=== PATIENT | female | born 1985 | race Caucasian/White ===

== ENCOUNTER 2020-12-25 17:07 | Emergency (ER) | payer OTHER ==
[~2020-12-25] VITALS: Ht 162.6 cm; Wt 88.5 kg
[2020-12-25 17:20] VITALS: BP 107/66
[2020-12-25 17:42] LABS: BASOPHILS % (AUTO) 0.6 % (0.0-2.0); EOSINOPHILS # (AUTO) 0.2 K/uL (0-0.4); EOSINOPHILS % (AUTO) 2.6 % (0.0-4.0); HEMATOCRIT 39.7 % (36-48); HEMOGLOBIN 13.5 g/dL (12.0-16.0); LYMPHOCYTES # (AUTO) 2.7 K/uL (2.5-16.5); MEAN CORPUSCULAR HEMOGLOBIN 30 pg (27-31); MEAN CORPUSCULAR HGB CONC 34 g/dL (33-37); MEAN CORPUSCULAR VOLUME 88.3 fL (80-94); MONOCYTES # (AUTO) 0.6 K/uL (0.8-1.0); MONOCYTES % (AUTO) 7.4 % (1.7-9.3); NEUTROPHILS % (AUTO) 53.4 % (42.2-75.2); PLATELET COUNT (AUTO) 309 K/uL (140-450); RED BLOOD CELL COUNT(AUTO) 4.49 MIL/uL (4.20-5.40); RED CELL DISTRIBUTION WIDTH 12.9 % (11.6-13.7); WHITE BLOOD COUNT (AUTO) 7.5 K/uL (4.8-10.8)
--- NOTE | 2020-12-25 17:43 | NUR ---
35 YEAR OLD FEMALE COMPLAINS OF VAGINAL BLEEDING AND CRAMPING X TODAY. PT DENIES NAUSEA, VOMITTING, DIARRHEA. PT AOX4, BREATHING EVEN AND UNLABORED, SKIN WARM AND DRY. BED IN LOWEST POSITION, LOCKED, BED RAIL UPX1. PMH - C SECTION ALLERGIES - NKA
[2020-12-25] MEDS: ACETAMINOPHEN EXTRA STRENGTH 500 MG TAB PO ONE (17:48)
[2020-12-25 18:11] LABS: APPEARANCE,URINE HAZY (CLEAR); BILIRUBIN,URINE NEGATIVE (NEGATIVE); BLOOD, URINE 3+ (NEGATIVE); COLOR,URINE YELLOW (YELLOW); LEUKOCYTE ESTERASE ,URINE NEGATIVE (NEGATIVE); NITRITE, URINE NEGATIVE (NEGATIVE); PH,URINE 6.5 (5.0-9.0); UGLUCOSE NEGATIVE (NEGATIVE)
[2020-12-25 18:24] LABS: RBC,URINE 50-80 /HPF (0-5); WBC,URINE 0-5 /HPF (0-5)
--- NOTE | 2020-12-25 19:02 | NUR ---
RHOGAM ADMINISTERED IM INTO LEFT GLUTEUS TOR SITE.
[2020-12-25 19:05] VITALS: BP 106/70
--- NOTE | 2020-12-25 19:05 | NUR ---
Patient discharged with v/s stable. Written and verbal after care instructions about miscarriage given and explained. Patient verbalized understanding. Ambulatory with steady gait. All questions addressed prior to discharge. Advised to follow up with PMD.
== END 2020-12-25 19:05 | disposition home or self-care (01) ==
LOC: MED 17:07
DX: N93.9 Abnormal uterine and vaginal bleeding, unspecified (principal); R10.2 Pelvic and perineal pain
CPT/HCPCS: 36415; 76830; 81001; 81025; 84702; 85025; 86886; 86900; 86901; 99284; J2790

== ENCOUNTER 2021-06-05 21:34 | Emergency (ER) | payer OTHER ==
[~2021-06-05] VITALS: Ht 162.6 cm; Wt 91.6 kg
[2021-06-05 21:43] VITALS: BP 115/70
--- NOTE | 2021-06-05 21:55 | NUR ---
PT TAKEN TO BED 9
[2021-06-05 22:36] LABS: APPEARANCE,URINE CLEAR (CLEAR); BILIRUBIN,URINE NEGATIVE (NEGATIVE); BLOOD, URINE NEGATIVE (NEGATIVE); COLOR,URINE YELLOW (YELLOW); LEUKOCYTE ESTERASE ,URINE NEGATIVE (NEGATIVE); NITRITE, URINE NEGATIVE (NEGATIVE); PH,URINE 7.5 (5.0-9.0); UGLUCOSE NEGATIVE (NEGATIVE)
--- NOTE | 2021-06-05 22:51 | NUR ---
Dr. Krishnan examining patient.
[2021-06-05 23:29] VITALS: BP 115/70
--- NOTE | 2021-06-05 23:29 | NUR ---
Patient discharged with v/s stable. Written and verbal after care instructions given and explained. Patient verbalized understanding. Ambulatory with steady gait. ID band removed. All questions addressed prior to discharge. Advised to follow up with PMD.
== END 2021-06-05 23:29 | disposition home or self-care (01) ==
LOC: MED 21:34
DX: O26.891 Other specified pregnancy related conditions, first trimester (principal); M54.50 Low back pain, unspecified; Z3A.01 Less than 8 weeks gestation of pregnancy; Z88.8 Allergy status to other drugs, medicaments and biological substances; Z98.890 Other specified postprocedural states
CPT/HCPCS: 81003; 81025; 99283

== ENCOUNTER 2021-07-21 07:10 | Emergency (ER) | payer OTHER ==
[~2021-07-21] VITALS: Ht 162.6 cm; Wt 91.6 kg
[2021-07-21 07:16] VITALS: BP 98/62
--- NOTE | 2021-07-21 07:44 | NUR ---
36/F BIB SELF WITH C/O LOWER BACK PAIN AND VAGINAL BLEEDING SINCE THIS MORNING. PATIENT REPORTS SHE IS APPROXIMATELY 11 WEEKS AND WOKE UP WITH "BRIGHT RED BLOOD" WHEN USING THE RESTROOM THIS MORNING. STATES SHE BEGAN HAVING 4/10 SHARP LOWER BACK PAIN THAT IS UNPROVOKED AND NONRADIATING. PATIENT DENIES CP, SOB, FEVER, CHILLS, N/V/D. PATIENT IS A2.
--- NOTE | 2021-07-21 07:46 | NUR ---
ULTRASOUND AT BEDSIDE.
[2021-07-21 08:45] LABS: BASOPHILS % (AUTO) 0.3 % (0.0-2.0); EOSINOPHILS # (AUTO) 0.2 K/uL (0-0.4); EOSINOPHILS % (AUTO) 2.8 % (0.0-4.0); HEMATOCRIT 37.4 % (36-48); HEMOGLOBIN 12.9 g/dL (12.0-16.0); LYMPHOCYTES # (AUTO) 1.7 K/uL (2.5-16.5); LYMPHOCYTES % (AUTO) 20.7 % (20.5-51.1); MEAN CORPUSCULAR HEMOGLOBIN 30 pg (27-31); MEAN CORPUSCULAR HGB CONC 34 g/dL (33-37); MEAN CORPUSCULAR VOLUME 86.8 fL (80-94); MONOCYTES # (AUTO) 0.4 K/uL (0.8-1.0); MONOCYTES % (AUTO) 5.2 % (1.7-9.3); NEUTROPHILS # (AUTO) 5.7 K/uL (1.8-7.7); PLATELET COUNT (AUTO) 252 K/uL (140-450); RED BLOOD CELL COUNT(AUTO) 4.31 MIL/uL (4.20-5.40); RED CELL DISTRIBUTION WIDTH 13.5 % (11.6-13.7); WHITE BLOOD COUNT (AUTO) 8.1 K/uL (4.8-10.8)
[2021-07-21 09:11] LABS: APPEARANCE,URINE CLEAR (CLEAR); BILIRUBIN,URINE 1+ (NEGATIVE); BLOOD, URINE 3+ (NEGATIVE); COLOR,URINE YELLOW (YELLOW); LEUKOCYTE ESTERASE ,URINE NEGATIVE (NEGATIVE); NITRITE, URINE NEGATIVE (NEGATIVE); UGLUCOSE NEGATIVE (NEGATIVE)
--- NOTE | 2021-07-21 09:30 | NUR ---
PATIENT LAYING BED, AWAITING RESULTS. WILL CONTINUE TO MONITOR.
[2021-07-21 09:43] LABS: WBC,URINE 0-5 /HPF (0-5)
[2021-07-21 09:48] LABS: OTHER CASTS, URINE RARE SPERMATOZOA /LPF (None Seen)
--- NOTE | 2021-07-21 12:00 | NUR ---
ORDERED BY DR. VALLES, RHOGAM GIVEN IM. VERIFIED BY TWO RNS PRIOR TO ADMINISTRATION. CONSENT OBTAINED AND IN PATIENT CHART.
[2021-07-21 12:45] VITALS: BP 123/65
--- NOTE | 2021-07-21 12:47 | NUR ---
Patient discharged with v/s stable. Written and verbal after care instructions given and explained. Patient verbalized understanding. Ambulatory with steady gait. All questions addressed prior to discharge. Advised to follow up with PMD.
== END 2021-07-21 12:45 | disposition home or self-care (01) ==
LOC: MED 07:10
DX: O03.9 Complete or unspecified spontaneous abortion without complication (principal); Z98.890 Other specified postprocedural states; Z88.6 Allergy status to analgesic agent; Z3A.11 11 weeks gestation of pregnancy
CPT/HCPCS: 36415; 76817; 81001; 81025; 84702; 85025; 86850; 86886; 86900; 86901; 99284; J2790; Q0092

== ENCOUNTER 2021-08-05 09:55 | Observation (INO) | payer OTHER, SELFPAY ==
[~2021-08-05] VITALS: Ht 162.6 cm; Wt 91.6 kg
--- NOTE | 2021-08-05 10:00 | NUR ---
36 Y/O FEMALE BIBA C/O VAGINAL BLEEDING THIS AM. PER EMS PT ABOUT 1 CUP OF VAGINAL BLEEDING TODAY. ALSO HAD RECENT DEMISE 1 MONTH AGO. PT DENIES ANY PAIN. ABD SOFT NON TENDER. ACTIVE VAGINAL BLEEDING NOTED. ERMD MADE AWARE OF PT STATUS MEDHX: DENIES ALLERGIES: NAPROXEN
[2021-08-05 10:05] VITALS: BP 118/79
--- NOTE | 2021-08-05 10:09 | NUR ---
DR CANO AT BEDSIDE EXAMINING PT
--- NOTE | 2021-08-05 10:11 | NUR ---
DR CANO AT BEDSIDE PERFORMING ULTRASOUND
--- NOTE | 2021-08-05 10:23 | NUR ---
LAB AT BEDSIDE
[2021-08-05 10:37] LABS: BASOPHILS % (AUTO) 0.4 % (0.0-2.0); EOSINOPHILS # (AUTO) 0.2 K/uL (0-0.4); HEMATOCRIT 30.4 % (36-48); HEMOGLOBIN 10.5 g/dL (12.0-16.0); LYMPHOCYTES # (AUTO) 1.7 K/uL (2.5-16.5); LYMPHOCYTES % (AUTO) 25.6 % (20.5-51.1); MEAN CORPUSCULAR HEMOGLOBIN 30 pg (27-31); MEAN CORPUSCULAR HGB CONC 35 g/dL (33-37); MEAN CORPUSCULAR VOLUME 86.9 fL (80-94); MONOCYTES # (AUTO) 0.3 K/uL (0.8-1.0); MONOCYTES % (AUTO) 4.7 % (1.7-9.3); NEUTROPHILS # (AUTO) 4.4 K/uL (1.8-7.7); NEUTROPHILS % (AUTO) 66.3 % (42.2-75.2); PLATELET COUNT (AUTO) 288 K/uL (140-450); RED CELL DISTRIBUTION WIDTH 13.2 % (11.6-13.7); WHITE BLOOD COUNT (AUTO) 6.6 K/uL (4.8-10.8)
--- NOTE | 2021-08-05 10:43 | NUR ---
ULTRASOUND AT BEDSIDE
--- NOTE | 2021-08-05 11:54 | NUR ---
PT'S AT BEDSIDE
--- NOTE | 2021-08-05 12:18 | NUR ---
RHOGHAM GIVEN, IM SHOT TO GLUTEUS TOR. VERIFIED PT, LOT # AND EXP DATE WITH ELMA BRYAN BEDSIDE. MAREKR
--- NOTE | 2021-08-05 13:39 | NUR ---
Pelvic exam performed by DR CANO with TESHA BRYAN at bedside for entire examination. Patient tolerated procedure WELL. Patient assisted to position of comfort after examination.
[2021-08-05] MEDS ORDERED: MAGNESIUM OXIDE 400 MG TAB PO PRN (15:15)
[2021-08-05] MEDS ORDERED: ACETAMINOPHEN 325 MG TAB PO PRN (15:15)
[2021-08-05] MEDS ORDERED: POTASSIUM CHLORIDE 10 MEQ TABER PO PRN (15:15)
[2021-08-05] MEDS ORDERED: MAG SULF 2000 MG/WATER PREMIX 50 ML IV PRN (15:15)
[2021-08-05] MEDS ORDERED: ONDANSETRON 4 MG/2 ML VIAL IVP PRN (15:15)
[2021-08-05] MEDS ORDERED: MORPHINE SULFATE 2 MG/ML SYR IVP PRN (15:15)
[2021-08-05] MEDS ORDERED: KCL 20 MEQ/WATER INJ PREMIX 200 ML IV PRN (15:15)
[2021-08-05] MEDS ORDERED: IBUPROFEN 400 MG TAB PO PRN (15:15)
[2021-08-05 15:21] LABS: BILIRUBIN,URINE 1+ (NEGATIVE); BLOOD, URINE 3+ (NEGATIVE); COLOR,URINE RED (YELLOW); LEUKOCYTE ESTERASE ,URINE TRACE (NEGATIVE); NITRITE, URINE POSITIVE (NEGATIVE); PH,URINE 6.5 (5.0-9.0); UGLUCOSE NEGATIVE (NEGATIVE)
[2021-08-05 15:45] LABS: RBC,URINE TOO NUMEROUS TO COUN /HPF (0-5); WBC,URINE NONE SEEN /HPF (0-5)
[2021-08-05] MEDS: NACL 0.9% 1,000 ML IV SCH (16:10)
--- NOTE | 2021-08-05 17:04 | NUR ---
DR BARRON AT BEDSIDE EXAMINING PT
--- NOTE | 2021-08-05 17:32 | NUR ---
PT AMBULATED TO RESTROOM, STEADY GAIT
--- NOTE | 2021-08-05 17:51 | NUR ---
PT STATES LAST TIME SHE ATE WAS LAST NIGHT 08/04 AT 8PM.
--- NOTE | 2021-08-05 19:22 | NUR ---
Pt report given to FLORI BRYAN. Transfer of care at this time.
--- NOTE | 2021-08-05 19:22 | NUR ---
REPORT RECEIVED FROM RANDI PARKINSON FOR CONTINUITY OF PT CARE AT THIS TIME.
--- NOTE | 2021-08-05 20:34 | NUR ---
PT SITTING IN BED LOCKED IN LOWEST POSITION W HOB ELEVATED. PT DENIES ANY PAIN, DIZZINESS, NAUSEA, OR OTHER SYMPTOMS. PT DOES NOT NEED ANYTHING AT THIS TIME. ALL NEEDS MET. VSS. BREATHING EVEN AND UNLABORED. NAD NOTED, WILL CONTINUE TO MONITOR.
--- NOTE | 2021-08-05 21:55 | NUR ---
CALLED RANDI PAINTER TO GIVE REPORT, PER ELIO, BETTING CLERK NOT READY TO TAKE REPORT WILL CALL BACK.
--- NOTE | 2021-08-05 22:18 | NUR ---
PT APPEARS TO BE RESTING W EYES CLOSED IN L LATERAL POSITION, HOB ELEVATED, X1 SIDERAIL UP. BREATHING EVEN AND UNLABORED. NAD NOTED, WILL CONTINUE TO MONITOR.
--- NOTE | 2021-08-05 23:56 | NUR ---
CALLED MADINA BRYAN, X2 TO GIVE REPORT. NO ANSWER AT THIS TIME.
--- NOTE | 2021-08-06 00:12 | NUR ---
Pt report given to PAPO BALLARD. Transfer of care at this time.
--- NOTE | 2021-08-06 00:29 | NUR ---
Patient will be admitted to care of DR. BARRON. Admited to MED/SURG. Will go to room 128B. Belongings list completed. Report to PAPO BALLARD.
--- NOTE | 2021-08-06 01:30 | NUR ---
ADMITTED PATIENT FROM ER DEPARTMENT VIA WHEELCHAIR WITH 1 STAFF WITH CHIEF COMPLAINT OF VAGINAL BLEEDING. PATIENT IS 36 Y/O FEMALE AND COOPERATIVE. PATIENT IS AWAKE, ALERT, ORIENTED AND VERBALLY RESPONSIVE. ABLE TO MAKE NEEDS KNOWN. A/OX4. HEAD TO TOE ASSESSMENT BY RN DARON COMPLETED. BREATHING EVEN AND UNLABORED WITH NO SOB NOTED. INITIAL V/S TAKEN AND WNL. PATIENT IS NPO EXCEPT FOR MEDICATIONS. IV SITE ON LEFT A/C 20G WITH NS @ 100ML/HR. SKIN IS INTACT. ORIENTED TO CALL LIGHT, BED, PHONE, TELEVISION, BATHROOM, VISITING HOURS, PROCEDURES, ID BRACELET ON, BELONGINGS LIST CHECKED. ALL SAFETY MEASURES IN PLACE. CALL LIGHT WITHIN REACH. WILL CONTINUE WITH THE CURRENT PLAN OF CARE.
[2021-08-06] MEDS: NACL 0.9% 1,000 ML IV SCH ×3 (02:08→21:15)
--- NOTE | 2021-08-06 03:24 | NUR ---
CHECKED ON PATIENT. PATIENT ASLEEP WITH VISIBLE CHEST RISING AND FALLING. BREATHING EVEN AND UNLABORED WITH NO SOB NOTED. NOT IN DISTRESS. ALL SAFETY MEASURES IN PLACE. CALL LIGHT WITHIN REACH. WILL CONTINUE TO MONITOR.
[2021-08-06 04:00] VITALS: BP 101/59
--- NOTE | 2021-08-06 05:25 | NUR ---
ROUNDED ON PATIENT. SLEEPING WELL. VISIBLE CHEST RISING AND FALLING. ALL SAFETY MEASURES IN PLACE. CALL LIGHT WITHIN REACH. WILL CONTINUE TO MONITOR.
[2021-08-06 05:44] LABS: BASOPHILS % (AUTO) 0.4 % (0.0-2.0); EOSINOPHILS # (AUTO) 0.2 K/uL (0-0.4); EOSINOPHILS % (AUTO) 3.2 % (0.0-4.0); HEMATOCRIT 27.6 % (36-48); HEMOGLOBIN 9.5 g/dL (12.0-16.0); LYMPHOCYTES # (AUTO) 2.1 K/uL (2.5-16.5); MEAN CORPUSCULAR HEMOGLOBIN 30 pg (27-31); MEAN CORPUSCULAR HGB CONC 35 g/dL (33-37); MEAN CORPUSCULAR VOLUME 86.8 fL (80-94); MONOCYTES # (AUTO) 0.6 K/uL (0.8-1.0); MONOCYTES % (AUTO) 8.4 % (1.7-9.3); NEUTROPHILS # (AUTO) 3.7 K/uL (1.8-7.7); PLATELET COUNT (AUTO) 237 K/uL (140-450); RED BLOOD CELL COUNT(AUTO) 3.18 MIL/uL (4.20-5.40); RED CELL DISTRIBUTION WIDTH 13.1 % (11.6-13.7); WHITE BLOOD COUNT (AUTO) 6.6 K/uL (4.8-10.8)
--- NOTE | 2021-08-06 07:05 | NUR ---
RECEIVED ENDORSEMENT FROM CIGAR PACKER AND GRADER FOR CONTINUITY OF CARE. PT NPO POST MID NIGHT.
--- NOTE | 2021-08-06 07:10 | NUR ---
ENDORSED PATIENT REPORT TO AM SHIFT NURSE FOR CONTINUITY OF CARE. PATIENT IS STABLE.
--- NOTE | 2021-08-06 07:24 | NUR ---
PT TRANSFER TO OR COMPRESSOR REPAIRER BY 2 OR STAFF VIA [facility].
[2021-08-06 07:41] LABS: ANION GAP 12.1 (8-16); CARBON DIOXIDE 24.5 mmol/L (21-32); CREATININE 0.7 mg/dL (0.6-1.3); POTASSIUM 3.6 mmol/L (3.5-5.1)
[2021-08-06] MEDS ORDERED: fentaNYL citrate 0.05 MG/ML VIAL ONE (07:42)
[2021-08-06] MEDS ORDERED: MIDAZOLAM 2 MG/2 ML VIAL ONE (07:43)
[2021-08-06] MEDS ORDERED: PROPOFOL 200 MG/20 ML VIAL IV ONE (07:43)
[2021-08-06] MEDS ORDERED: ONDANSETRON 4 MG/2 ML VIAL ONE (08:08)
[2021-08-06] MEDS ORDERED: MEPERIDINE 25 MG/ML SYR IVP PRN (08:15)
[2021-08-06] MEDS ORDERED: HYDROmorphone 1 MG/ML AMP IVP PRN (08:15)
[2021-08-06] MEDS ORDERED: ONDANSETRON 4 MG/2 ML VIAL IVP PRN (08:15)
[2021-08-06] MEDS: LACTATED RINGERS 1,000 ML IV SCH ×2 (08:15→16:09)
[2021-08-06] MEDS ORDERED: diphenhydrAMINE 50 MG/ML VIAL IVP PRN (08:15)
--- NOTE | 2021-08-06 08:25 | NUR ---
PATIENT HAS BEEN SCREENED AND CATEGORIZED LOW NUTRITION RISK. PATIENT WILL BE SEEN WITHIN 7 DAYS OF ADMISSION. 08/12/[address]
[2021-08-06] MEDS: metroNIDAZOLE 500 MG/NS PREMIX 100 ML IV SCH ×2 (09:00→21:13)
--- NOTE | 2021-08-06 09:18 | NUR ---
PT SLEEPING BACK FROM OR ON STABLE CONDITION.
[2021-08-06] MEDS: DOXYCYCLINE 100 MG in DEXTROSE 5% 100 ML IV SCH (10:30)
--- NOTE | 2021-08-06 10:30 | NUR ---
RN GIVEN IV ATB TOLERATED WELL NO ADVERSE REACTION NOTED. ALL SAFETY PRECAUTION IN PLACE. CALL LIGHT WITH IN EASY REACH.
[2021-08-06 12:00] VITALS: BP 96/56
--- NOTE | 2021-08-06 12:30 | NUR ---
PT GOES TO TOILET AND CHANGE HER SANITARY PADS NOTED WITH SMALL AMOUNT OF BRIGHT BLOOD STAIN. ALL SAFETY PRECAUTION IN PLACE. DENIES PAIN.
--- NOTE | 2021-08-06 16:00 | NUR ---
PT ON STABLE CONDITION AT BED SIDE.
--- NOTE | 2021-08-06 18:00 | NUR ---
AT BED SIDE. PT ON STABLE CONDITION. NO S/S OF BLEEDING NO DIZZINESS, LIGHT HEADED. NO ADVERSE REACTION ON IV ATB. CALL LIGHT WITH IN EASY REACH.
--- NOTE | 2021-08-06 19:10 | NUR ---
PT ON STABLE CONDITION ENDORSE TO RESIDENTIAL LIVING ASSISTANT NURSE FOR CONTINUITY OF CARE.
--- NOTE | 2021-08-06 19:25 | NUR ---
RECEIVED PATIENT REPORT FROM AM SHIFT NURSE FOR CONTINUITY OF CARE. PATIENT IN BED, AWAKE, ALERT AND VERBALLY RESPONSIVE. PATIENT AT BEDSIDE. PATIENT ABLE TO MAKE NEEDS KNOWN. NOT IN DISTRESS. DENIES ANY PAIN OR DISCOMFORT AT THIS TIME. BREATHING EVEN AND UNLABORED WITH NO SOB NOTED. ALL SAFETY MEASURES IN PLACE. CALL LIGHT WITHIN REACH. WILL CONTINUE WITH THE CURRENT PLAN OF CARE.
[2021-08-06 20:00] VITALS: BP 98/63
--- NOTE | 2021-08-06 21:05 | NUR ---
PATIENT COMPLAINT OF HEADACHE 11/23. ADMINISTERED PAIN MEDICATION PER MD ORDER. TOLERATED WELL. NO ASE NOTED. ALL SAFETY MEASURES IN PLACE. CALL LIGHT WITHIN REACH. WILL CONTINUE TO MONITOR.
--- NOTE | 2021-08-06 21:15 | NUR ---
ALL IV MEDICATIONS ADMINISTERED BY RANDI GOLDEN PER MD ORDER.
--- NOTE | 2021-08-06 23:04 | NUR ---
Patient's Plan of Care was discussed and reviewed with PAPO: VICK
--- NOTE | 2021-08-07 01:06 | NUR ---
ROUNDED ON PATIENT. PATIENT SLEEPING WELL WITH HOB IN SEMI-FOWLERS. BREATHING EVEN AND UNLABORED WITH NO SOB NOTED. ALL SAFETY MEASURES IN PLACE. CALL LIGHT WITHIN REACH. WILL CONTINUE TO MONITOR.
--- NOTE | 2021-08-07 03:40 | NUR ---
CHECKED ON PATIENT. PATIENT RESTING IN BED COMFORTABLY WITH HOB ELEVATED. BREATHING EVEN AND UNLABORED. NO SOB NOTED. NOT IN DISTRESS. ALL SAFETY MEASURES IN PLACE. CALL LIGHT WITHIN REACH. WILL CONTINUE TO MONITOR.
[2021-08-07 04:00] VITALS: BP 97/58
[2021-08-07] MEDS: NACL 0.9% 1,000 ML IV SCH (05:15)
[2021-08-07 05:37] LABS: BASOPHILS % (AUTO) 0.7 % (0.0-2.0); EOSINOPHILS # (AUTO) 0.3 K/uL (0-0.4); EOSINOPHILS % (AUTO) 5.6 % (0.0-4.0); HEMATOCRIT 26.2 % (36-48); HEMOGLOBIN 9.1 g/dL (12.0-16.0); LYMPHOCYTES # (AUTO) 1.9 K/uL (2.5-16.5); LYMPHOCYTES % (AUTO) 40.7 % (20.5-51.1); MEAN CORPUSCULAR HEMOGLOBIN 30 pg (27-31); MEAN CORPUSCULAR HGB CONC 35 g/dL (33-37); MEAN CORPUSCULAR VOLUME 86.6 fL (80-94); MONOCYTES # (AUTO) 0.4 K/uL (0.8-1.0); MONOCYTES % (AUTO) 7.9 % (1.7-9.3); NEUTROPHILS # (AUTO) 2.1 K/uL (1.8-7.7); NEUTROPHILS % (AUTO) 45.1 % (42.2-75.2); PLATELET COUNT (AUTO) 251 K/uL (140-450); RED BLOOD CELL COUNT(AUTO) 3.02 MIL/uL (4.20-5.40); WHITE BLOOD COUNT (AUTO) 4.7 K/uL (4.8-10.8)
--- NOTE | 2021-08-07 05:50 | NUR ---
PATIENT STILL ASLEEP. NO S/S OF ACUTE DISTRESS NOTED. BREATHING EVEN AND UNLABORED. NO SOB NOTED. CALL LIGHT WITHIN REACH. WILL CONTINUE TO MONITOR.
[2021-08-07 05:53] LABS: ANION GAP 12.1 (8-16); CARBON DIOXIDE 25.7 mmol/L (21-32); CREATININE 0.6 mg/dL (0.6-1.3); POTASSIUM 3.8 mmol/L (3.5-5.1)
--- NOTE | 2021-08-07 07:27 | NUR ---
ENDORSED PATIENT TO AM SHIFT NURSE FOR CONTINUITY OF CARE. PATIENT IS STABLE.
--- NOTE | 2021-08-07 07:30 | NUR ---
RECEIVED REPORT FROM BRAND DIRECTOR RN FOR CONTINUITY OF CARE. PATIENT IS ASLEEP. NO S/S OF DISTRESS. RESPIRATIONS EVEN AND UNLABORED ON ROOM AIR. ALL SAFETY PRECAUTIONS IN PLACE.
[2021-08-07] MEDS ORDERED: ACET-1182 PO (08:38)
[2021-08-07] MEDS: metroNIDAZOLE 500 MG/NS PREMIX 100 ML IV SCH (09:00)
[2021-08-07] MEDS: DOXYCYCLINE 100 MG in DEXTROSE 5% 100 ML IV SCH (09:00)
--- NOTE | 2021-08-07 09:30 | NUR ---
PATIENT COMPLAINED OF LEFT ARM PAIN. IV SITE WAS NO LONGER FLUSHING WELL AND ARM WAS SWOLLEN. IVF STOPPED AND IV WAS REMOVED. IV CATH INTACT UPON REMOVAL. ARM ELEVATED ON PILLOW. WILL CONTINUE TO MONITOR.
--- NOTE | 2021-08-07 12:15 | NUR ---
ENDORSED DISCHARGE INSTRUCTIONS TO PATIENT. PATIENT VERBALIZED UNDERSTANDING.
[2021-08-07 12:17] VITALS: BP 99/62
--- NOTE | 2021-08-07 13:00 | NUR ---
DISCHARGED PATIENT OFF UNIT VIA WHEELCHAIR. PATIENT'S PICKED HER UP VIA PERSONAL CAR. PATIENT STABLE.
== END 2021-08-07 13:00 | disposition home or self-care (01) ==
LOC: MED 09:55 → MMU 15:17
PROVIDERS: ADMIT Internal Medicine; ATTEND Internal Medicine
DX: O03.4 Incomplete spontaneous abortion without complication (principal); Z20.822 Contact with and (suspected) exposure to COVID-19; N93.9 Abnormal uterine and vaginal bleeding, unspecified; D50.0 Iron deficiency anemia secondary to blood loss (chronic); N83.201 Unspecified ovarian cyst, right side; E66.9 Obesity, unspecified; Z79.899 Other long term (current) drug therapy
CPT/HCPCS: 36415; 59812; 76817; 80048; 81001; 83735; 84702; 85025; 86850; 86870; 86886; 86900; 86901; 87081; 87086; 87426; 96365; 96366; 96367; 96372; 99284; G0378; J0690; J2250; J2405; J2704; J2790; J3010; J3490; J7030; J7060; Q0092; 88305

== ENCOUNTER 2021-12-27 12:49 | Emergency (ER) | payer OTHER ==
[~2021-12-27] VITALS: Ht 162.6 cm; Wt 90.9 kg
[~2021-12-27 12:49] MED LIST: ACET-1182 PO
[2021-12-27 12:53] VITALS: BP 107/64
--- NOTE | 2021-12-27 13:14 | NUR ---
PT BIB SELF C/O LOWER ABD MID-LINE PAIN, BACK PAIN X AM WITH NAUSEA , VAGINAL BLEEDING X TODAY-PT STS " BLOOD WAS ON THE TOILET PAPER AFTER I WIPED MYSELF.. MIS ABD 3, PT DENIES N/V/D; SKIN IS INTACT, PINK/WARM/DRY; AAOX4, PERRL, WITH EVEN AND STEADY GAIT; LUNGS CLEAR BL, BREATHING UNLABORED; HR EVEN AND REGULAR, ABD-MILD TENDERNESS TO PALPATION. PT DENIES ANY FEVER, CP, SOB, OR COUGH AT THIS TIME; PT STATES 5/10 PAIN AT THIS TIME; VSS; PATIENT POSITIONED FOR COMFORT; HOB ELEVATED; BEDRAILS UP X2; BED DOWN. Addendum: 12/27/21 at 1324 by AMI LMP 11/19/21
[2021-12-27] MEDS ORDERED: ACETAMINOPHEN EXTRA STRENGTH 500 MG TAB PO ONE (13:30)
[2021-12-27] MEDS ORDERED: METOCLOPRAMIDE 10 MG TAB PO ONE ×2 (13:30→15:10)
--- NOTE | 2021-12-27 13:35 | NUR ---
pt refused reglan and tylenol at this time. stated she is experincing no nausea and pain and refused medication
--- NOTE | 2021-12-27 13:35 | NUR ---
dr. ash bedside evaluating pt
--- NOTE | 2021-12-27 13:43 | NUR ---
accelerator technician at patient bedside
[2021-12-27 14:07] LABS: BASOPHILS % (AUTO) 0.6 % (0.0-2.0); EOSINOPHILS # (AUTO) 0.2 K/uL (0-0.4); EOSINOPHILS % (AUTO) 2.9 % (0.0-4.0); HEMATOCRIT 32.6 % (36-48); HEMOGLOBIN 11.1 g/dL (12.0-16.0); LYMPHOCYTES # (AUTO) 2.1 K/uL (2.5-16.5); LYMPHOCYTES % (AUTO) 27.3 % (20.5-51.1); MEAN CORPUSCULAR HEMOGLOBIN 28 pg (27-31); MEAN CORPUSCULAR HGB CONC 34 g/dL (33-37); MONOCYTES # (AUTO) 0.5 K/uL (0.8-1.0); MONOCYTES % (AUTO) 6.5 % (1.7-9.3); NEUTROPHILS # (AUTO) 4.8 K/uL (1.8-7.7); NEUTROPHILS % (AUTO) 62.7 % (42.2-75.2); PLATELET COUNT (AUTO) 219 K/uL (140-450); RED BLOOD CELL COUNT(AUTO) 3.92 MIL/uL (4.20-5.40); RED CELL DISTRIBUTION WIDTH 17.1 % (11.6-13.7); WHITE BLOOD COUNT (AUTO) 7.6 K/uL (4.8-10.8)
[2021-12-27 14:30] LABS: ALBUMIN 3.5 g/dL (3.4-5.0); ANION GAP 10.1 (8-16); CARBON DIOXIDE 26.9 mmol/L (21-32); CREATININE 0.7 mg/dL (0.6-1.3); TOTAL BILIRUBIN 0.3 mg/dL (0.0-1.0)
--- NOTE | 2021-12-27 15:06 | NUR ---
PT EXPERINCING NAUSEA AT THIS TIME AND REQUESTING MEDICATION. ER MD MADE AWARE AND VERBAL ORDER GIVEN
--- NOTE | 2021-12-27 16:33 | NUR ---
IM RHOGAN GIVEN TO [facility]. LOT#[id number] EXP DATE 07/25/23
--- NOTE | 2021-12-27 16:46 | NUR ---
Patient appears to be resting comfortably in bed. Vital Signs within normal limits. Respirations even and unlabored.
[2021-12-27 17:19] VITALS: BP 102/67
--- NOTE | 2021-12-27 17:20 | NUR ---
Patient discharged with v/s stable. Written and verbal after care instructions ABOUT THREATENED MISCARRIAGE given and explained. Patient verbalized understanding. Ambulatory with steady gait. All questions addressed prior to discharge. Advised to follow up with PMD.
[2021-12-27 18:36] LABS: APPEARANCE,URINE CLEAR (CLEAR); BILIRUBIN,URINE NEGATIVE (NEGATIVE); BLOOD, URINE NEGATIVE (NEGATIVE); COLOR,URINE YELLOW (YELLOW); LEUKOCYTE ESTERASE ,URINE NEGATIVE (NEGATIVE); NITRITE, URINE NEGATIVE (NEGATIVE); PH,URINE 6.5 (5.0-9.0); UGLUCOSE NEGATIVE (NEGATIVE)
== END 2021-12-27 17:19 | disposition home or self-care (01) ==
LOC: MED 12:49
DX: O20.0 Threatened abortion (principal); Z3A.01 Less than 8 weeks gestation of pregnancy; Z79.899 Other long term (current) drug therapy; Z98.890 Other specified postprocedural states; Z88.8 Allergy status to other drugs, medicaments and biological substances
CPT/HCPCS: 36415; 76801; 80053; 81003; 81025; 83690; 84702; 85025; 86850; 86886; 86900; 86901; 99285; J8597; Q0092

== ENCOUNTER 2022-04-22 14:55 | Observation (INO) | payer OTHER ==
[~2022-04-22] VITALS: Ht 162.6 cm; Wt 93.9 kg
[2022-04-22] MEDS ORDERED: PRETAB PO (16:46)
[2022-04-22 18:19] VITALS: BP 101/68
== END 2022-04-22 17:05 | disposition home or self-care (01) ==
LOC: MFCC 14:55
PROVIDERS: ADMIT Obstetrics & Gynecology; ATTEND Obstetrics & Gynecology
DX: O62.9 Abnormality of forces of labor, unspecified (principal); Z20.822 Contact with and (suspected) exposure to COVID-19; Z3A.22 22 weeks gestation of pregnancy
CPT/HCPCS: 87426; G0378; 59025; 81000

== ENCOUNTER 2022-06-04 19:44 | Observation (INO) | payer OTHER ==
[~2022-06-04] VITALS: Ht 162.6 cm; Wt 95.7 kg
[~2022-06-04 19:44] MED LIST changes: -ACET-1182 PO; +PRETAB PO
[2022-06-04 20:27] VITALS: BP 112/63
== END 2022-06-04 21:55 | disposition home or self-care (01) ==
LOC: MLD 19:44
PROVIDERS: ADMIT Obstetrics & Gynecology; ATTEND Obstetrics & Gynecology
DX: Z34.82 Encounter for supervision of other normal pregnancy, second trimester (principal); Z3A.28 28 weeks gestation of pregnancy
CPT/HCPCS: 36415; 59025; 86886; 86900; 86901; 96372; G0378; G0379; J2790

== ENCOUNTER 2022-07-14 07:59 | Emergency (ER) | payer OTHER ==
[~2022-07-14] VITALS: Ht 162.6 cm; Wt 96.6 kg
[2022-07-14 08:30] VITALS: BP 103/63
--- NOTE | 2022-07-14 08:36 | NUR ---
C/O CHEST PAIN & SORE THROAT WHILE COUGHING, CANTU, AKASH EARS PAIN , FEVER X 3 DAYS. 34 WEEKS . PMH: DENIES
--- NOTE | 2022-07-14 08:38 | NUR ---
COVID, FLU SWABS DONE.
[2022-07-14] MEDS ORDERED: DIPH-670 PO (11:27)
[2022-07-14] MEDS ORDERED: ACET-9882 PO (11:27)
--- NOTE | 2022-07-14 11:39 | NUR ---
Patient discharged with v/s stable. Written and verbal after care instructions ABOUT UPPER RESPIRATORY given and explained. Patient alert, oriented and verbalized understanding of instructions. Ambulatory with steady gait. All questions addressed prior to discharge. ID band removed. Patient advised to follow up with PMD. Rx of TYLENOL AND BENADRYL given. Patient educated on indication of medication including possible reaction and side effects. Opportunity to ask questions provided and answered.
== END 2022-07-14 11:39 | disposition home or self-care (01) ==
LOC: MED 07:59
DX: O99.513 Diseases of the respiratory system complicating pregnancy, third trimester (principal); Z20.822 Contact with and (suspected) exposure to COVID-19; J06.9 Acute upper respiratory infection, unspecified; Z3A.34 34 weeks gestation of pregnancy; Z88.8 Allergy status to other drugs, medicaments and biological substances; Z79.899 Other long term (current) drug therapy
CPT/HCPCS: 99283

== ENCOUNTER 2022-07-22 19:55 | Observation (INO) | payer OTHER ==
[~2022-07-22] VITALS: Ht 157.5 cm; Wt 97.5 kg
[~2022-07-22 19:55] MED LIST changes: +ACET-9882 PO; +DIPH-670 PO
[2022-07-22 20:45] VITALS: BP 113/66
[2022-07-22] MEDS ORDERED: LACTATED RINGERS 500 ML IV SCH (22:10)
[2022-07-22] MEDS ORDERED: TERBUTALINE 1 MG/ML VIAL SUBQ ONE (22:47)
[2022-07-22] MEDS ORDERED: TERBUTALINE 1 MG/ML VIAL SUBQ SCH ×2 (22:50)
[2022-07-22] MEDS: LACTATED RINGERS 1,000 ML IV SCH ×2 (23:00→23:30)
== END 2022-07-23 01:45 | disposition home or self-care (01) ==
LOC: MLD 19:55
PROVIDERS: ADMIT Advanced Practice Midwife; ATTEND Advanced Practice Midwife
DX: O62.9 Abnormality of forces of labor, unspecified (principal); Z3A.35 35 weeks gestation of pregnancy
CPT/HCPCS: 96360; 96361; G0378; J3105

== ENCOUNTER 2022-08-17 05:24 | Inpatient (IN) | payer OTHER ==
[~2022-08-17] VITALS: Ht 162.6 cm; Wt 98.0 kg
[~2022-08-17 05:24] MED LIST changes: -ACET-9882 PO; -DIPH-670 PO
[2022-08-17] MEDS ORDERED: LACTATED RINGERS 1,000 ML IV SCH (05:55)
[2022-08-17] MEDS ORDERED: CARBOPROST 250 MCG/ML AMP IM PRN (05:55)
[2022-08-17] MEDS ORDERED: METHYLERGONOVINE 0.2 MG/ML AMP IM PRN ×2 (05:55→09:30)
[2022-08-17 06:33] LABS: BASOPHILS # (AUTO) 0.1 K/uL (0.00-0.22); BASOPHILS % (AUTO) 0.6 % (0.0-2.0); EOSINOPHILS # (AUTO) 0.1 K/uL (0-0.4); EOSINOPHILS % (AUTO) 1.3 % (0.0-4.0); HEMATOCRIT 32.1 % (36-48); HEMOGLOBIN 10.4 g/dL (12.0-16.0); LYMPHOCYTES # (AUTO) 1.9 K/uL (2.5-16.5); LYMPHOCYTES % (AUTO) 20.2 % (20.5-51.1); MEAN CORPUSCULAR HEMOGLOBIN 26 pg (27-31); MEAN CORPUSCULAR HGB CONC 32 g/dL (33-37); MEAN CORPUSCULAR VOLUME 79.9 fL (80-94); MONOCYTES # (AUTO) 0.6 K/uL (0.8-1.0); MONOCYTES % (AUTO) 6.6 % (1.7-9.3); NEUTROPHILS # (AUTO) 6.8 K/uL (1.8-7.7); NEUTROPHILS % (AUTO) 71.3 % (42.2-75.2); PLATELET COUNT (AUTO) 272 K/uL (140-450); RED BLOOD CELL COUNT(AUTO) 4.02 MIL/uL (4.20-5.40); WHITE BLOOD COUNT (AUTO) 9.6 K/uL (4.8-10.8)
[2022-08-17 06:56] LABS: ALBUMIN 2.2 g/dL (3.4-5.0); ANION GAP 12.2 (8-16); CARBON DIOXIDE 24.5 mmol/L (21-32); CREATININE 0.5 mg/dL (0.6-1.3); POTASSIUM 3.7 mmol/L (3.5-5.1); TOTAL BILIRUBIN 0.4 mg/dL (0.0-1.0)
[2022-08-17 07:09] VITALS: BP 120/73
[2022-08-17 07:15] LABS: PROTHROMBIN TIME 9.3 secs (10.8-13.4)
[2022-08-17] MEDS ORDERED: ceFAZolin 2,000 MG VIAL ONE (07:40)
[2022-08-17] MEDS ORDERED: MIDAZOLAM 2 MG/2 ML VIAL ONE (07:54)
[2022-08-17] MEDS ORDERED: MORPHINE PRES FREE 10 MG/10 ML AMP IV ONE (07:54)
[2022-08-17] MEDS ORDERED: METOCLOPRAMIDE 10 MG/2 ML INJ VIAL ONE (07:55)
[2022-08-17] MEDS ORDERED: OXYTOCIN 20 UNITS/LR PREMIX 1,000 ML IV ONE ×2 (08:09→19:39)
[2022-08-17] MEDS ORDERED: diphenhydrAMINE 50 MG/ML VIAL ONE (08:09)
[2022-08-17] MEDS ORDERED: HYDROmorphone 1 MG/ML AMP IVP PRN (08:25)
[2022-08-17] MEDS ORDERED: diphenhydrAMINE 50 MG/ML VIAL IVP PRN ×2 (08:25)
[2022-08-17] MEDS ORDERED: ONDANSETRON 4 MG/2 ML VIAL IVP PRN ×2 (08:25)
[2022-08-17] MEDS ORDERED: NALOXONE 0.4 MG/ML VIAL IVP PRN ×3 (08:25)
[2022-08-17] MEDS ORDERED: MEPERIDINE 25 MG/ML SYR IVP PRN (08:25)
[2022-08-17] MEDS ORDERED: NACL 0.9% 1,000 ML IV SCH (08:25)
[2022-08-17] MEDS ORDERED: OXYTOCIN 20 UNITS in LACTATED RINGERS 1,000 ML IV SCH (08:25)
[2022-08-17] MEDS ORDERED: NALBUPHINE 10 MG/ML AMP IVP PRN (08:25)
[2022-08-17] MEDS ORDERED: MEASLES, MUMPS, AND RUBELLA 1 VIAL SQVAC ONE (09:30)
--- NOTE | 2022-08-17 10:08 | NUR ---
PATIENT HAS BEEN SCREENED AND CATEGORIZED LOW NUTRITION RISK. PATIENT WILL BE SEEN WITHIN 7 DAYS OF ADMISSION. 08/17/22-08/24/[address]
[2022-08-17] MEDS: OXYTOCIN 20 UNITS in LACTATED RINGERS 1,000 ML IV SCH ×2 (10:15→19:46)
[2022-08-17 10:39] LABS: APPEARANCE,URINE CLEAR (CLEAR); BILIRUBIN,URINE NEGATIVE (NEGATIVE); BLOOD, URINE TRACE-I (NEGATIVE); COLOR,URINE YELLOW (YELLOW); LEUKOCYTE ESTERASE ,URINE NEGATIVE (NEGATIVE); NITRITE, URINE NEGATIVE (NEGATIVE); UGLUCOSE NEGATIVE (NEGATIVE)
[2022-08-17 11:08] LABS: RBC,URINE 0-5 /HPF (0-5); WBC,URINE 0-5 /HPF (0-5)
[2022-08-17 11:09] LABS: TRICHOMONAS,URINE None Seen /HPF (None Seen); YEAST,URINE None Seen /HPF (None Seen)
[2022-08-18] MEDS ORDERED: OXYTOCIN 20 UNITS/LR PREMIX 1,000 ML IV ONE (03:53)
[2022-08-18] MEDS: OXYTOCIN 20 UNITS in LACTATED RINGERS 1,000 ML IV SCH (03:59)
[2022-08-18] MEDS: oxyCODONE/APAP 5/325 MG 1 TAB TAB PO PRN ×3 (05:38→16:28)
[2022-08-18 05:51] LABS: BASOPHILS % (AUTO) 0.2 % (0.0-2.0); EOSINOPHILS % (AUTO) 0.3 % (0.0-4.0); HEMATOCRIT 29.5 % (36-48); HEMOGLOBIN 9.5 g/dL (12.0-16.0); LYMPHOCYTES # (AUTO) 1.4 K/uL (2.5-16.5); LYMPHOCYTES % (AUTO) 11.6 % (20.5-51.1); MEAN CORPUSCULAR HEMOGLOBIN 26 pg (27-31); MEAN CORPUSCULAR HGB CONC 32 g/dL (33-37); MEAN CORPUSCULAR VOLUME 80.2 fL (80-94); MONOCYTES # (AUTO) 0.9 K/uL (0.8-1.0); MONOCYTES % (AUTO) 7.3 % (1.7-9.3); NEUTROPHILS # (AUTO) 9.6 K/uL (1.8-7.7); NEUTROPHILS % (AUTO) 80.6 % (42.2-75.2); PLATELET COUNT (AUTO) 255 K/uL (140-450); RED BLOOD CELL COUNT(AUTO) 3.68 MIL/uL (4.20-5.40); RED CELL DISTRIBUTION WIDTH 15.7 % (11.6-13.7); WHITE BLOOD COUNT (AUTO) 11.9 K/uL (4.8-10.8)
[2022-08-18] MEDS: bisacodyL 10 MG SUPP RC SCH (09:00)
[2022-08-18] MEDS: SIMETHICONE 80 MG TAB.CHEW PO PRN ×2 (10:05→13:50)
[2022-08-18] MEDS ORDERED: CAMERA MC ONE (19:21)
[2022-08-19] MEDS: oxyCODONE/APAP 5/325 MG 1 TAB TAB PO PRN ×2 (00:31→09:24)
[2022-08-19] MEDS: bisacodyL 10 MG SUPP RC SCH (09:00)
== END 2022-08-19 14:15 | disposition home or self-care (01) | DRG 540 ==
LOC: MLD 05:24 → MFCC 10:00
PROVIDERS: ADMIT Obstetrics & Gynecology; ATTEND Obstetrics & Gynecology
PROC: 10D00Z1 Extraction of Products of Conception, Low, Open Approach (ICD-10-PCS; principal; 2022-08-17 08:00)
PROC: 3E0234Z Introduction of Serum, Toxoid and Vaccine into Muscle, Percutaneous Approach (ICD-10-PCS; 2022-08-18)
PROC: 30233S1 Transfusion of Nonautologous Globulin into Peripheral Vein, Percutaneous Approach (ICD-10-PCS; 2022-08-18)
DX: O34.211 Maternal care for low transverse scar from previous cesarean delivery (principal); D64.9 Anemia, unspecified; Z20.822 Contact with and (suspected) exposure to COVID-19; Z37.0 Single live birth; Z3A.38 38 weeks gestation of pregnancy; Z23 Encounter for immunization
CPT/HCPCS: 36415; 80053; 81001; 85025; 85610; 85730; 86592; 86762; 86850; 86886; 86900; 86901; 87340; J1200; J2250; J2270; J2405; J2590; J2765; J2790; J7120